=== PATIENT | female | born 1985 | race Caucasian/White ===

== ENCOUNTER 2017-08-08 08:29 | Emergency (ER) | payer BC, OTHER ==
[2017-08-08 08:45] VITALS: BP 153/103
--- NOTE | 2017-08-08 10:03 | UC ---
Throat Pain/Nasal Duy HPI - History of Current Complaint Chief Complaint: UCGeneralIllness Stated Complaint: SORE THROAT Time Seen by Provider: 08/08/17 08:48 Hx Last Menstrual Period: IUD Pain Intensity: 7 - Allergies/Home Medications Allergies/Adverse Reactions: Allergies Allergy/AdvReac Type Severity Reaction Status Date / Time No Known Allergies Allergy Verified 08/08/17 08:38 Home Medications: Home Medications [id number] Es (Nf) [Excedrin Extra Strength 250-250-65 mg (NF)] 3 tab PO ONCE PRN 08/08/17 [History Confirmed 08/08/17] Calcium Carbonate CHEW TAB* [Tums*] 1 tab PO Q6HR PRN 08/08/17 [History Confirmed 08/08/17] Ibuprofen TAB* [Advil TAB*] 800 mg PO Q8HR PRN 08/08/17 [History Confirmed 08/08] Levonorgestrel (Iud) [Kyleena IUD] 1 applic IU ONCE 08/08/17 [History Confirmed 08/08/17] Omeprazole CAP* [Prilosec CAP* 20 MG] 1 tab PO DAILY PRN 08/08/17 [History Confirmed 08/08/17] Phenol 1.4% Maddock* [Chloroseptic Throat Maddock*] 1 spray TOPICAL Q8HR PRN [History Confirmed 08/08/17] PMH/Surg Hx/FS Hx/Imm Hx - Surgical History Surgical History: Yes Surgery Procedure, Year, and Place: [place] Teeth extraction - Social History Alcohol Use: Occasionally Substance Use Type: None Smoking Status (MU): Never Smoked Tobacco Physical Exam Vital Signs: Initial Vital Signs Temp 98.4 F 08/08/17 08:41 Pulse 102 08/08/17 08:41 Resp 18 08/08/17 08:41 BP 153/103 08/08/17 08:41 Pulse Ox 99 08/08/17 08:41 Discharge - Discharge Plan Referrals: No Primary Care Phys,NOPCP [Primary Care Provider] -
--- NOTE | 2017-08-08 10:21 | UC ---
Throat Pain/Nasal Duy HPI - HPI Summary HPI Summary: ONSET OF SORE THROAT, PAIN WITH SWALLOWING AND SWOLLEN TONSILS YESTERDAY. PATIENT RECENTLY FOUND OUT ABOUT HER SIGNIFICANT OTHER'S INFIDELITY AND SHE IS CONCERNED ABOUT STI. [facility] AND HAD NEGATIVE RAPID HIV. SHE DENIES ANY URI SYMPTOMS OR COUGH. - History of Current Complaint Chief Complaint: UCGeneralIllness Stated Complaint: SORE THROAT Time Seen by Provider: 08/08/17 08:48 Hx Obtained From: Patient Hx Last Menstrual Period: IUD Onset/Duration: Sudden Onset, Lasting Days - 1 DAY, Still Present Severity: Moderate Pain Intensity: 7 Pain Scale Used: 0-10 Numeric Cough: None Associated Signs & Symptoms: Negative: Fever - Allergies/Home Medications Allergies/Adverse Reactions: Allergies Allergy/AdvReac Type Severity Reaction Status Date / Time No Known Allergies Allergy Verified 08/08/17 08:38 Home Medications: Home Medications [id number] Es (Nf) [Excedrin Extra Strength 250-250-65 mg (NF)] 3 tab PO ONCE PRN 08/08/17 [History Confirmed 08/08/17] Calcium Carbonate CHEW TAB* [Tums*] 1 tab PO Q6HR PRN 08/08/17 [History Confirmed 08/08/17] Ibuprofen TAB* [Advil TAB*] 800 mg PO Q8HR PRN 08/08/17 [History Confirmed 08/08] Levonorgestrel (Iud) [Kyleena IUD] 1 applic IU ONCE 08/08/17 [History Confirmed 08/08/17] Omeprazole CAP* [Prilosec CAP* 20 MG] 1 tab PO DAILY PRN 08/08/17 [History Confirmed 08/08/17] Phenol 1.4% Kapaa* [Chloroseptic Throat Kapaa*] 1 spray TOPICAL Q8HR PRN [History Confirmed 08/08/17] PMH/Surg Hx/FS Hx/Imm Hx - Additional Past Medical History Additional PMH: PCOS - Surgical History Surgical History: Yes Surgery Procedure, Year, and Place: [place] Teeth extraction - Family History Known Family History: Positive: Hypertension - Social History Alcohol Use: Occasionally Substance Use Type: None Smoking Status (MU): Never Smoked Tobacco Review of Systems Constitutional: Negative ENT: Sore Throat Respiratory: Negative Cardiovascular: Negative Gastrointestinal: Negative All Other Systems Reviewed And Are Negative: Yes Physical Exam Triage Information Reviewed: Yes Appearance: Well-Appearing, No Pain Distress, Well-Nourished Vital Signs: Initial Vital Signs Temp 98.4 F 08/08/17 08:41 Pulse 102 08/08/17 08:41 Resp 18 08/08/17 08:41 BP 153/103 08/08/17 08:41 Pulse Ox 99 08/08/17 08:41 Vital Signs Reviewed: Yes Eyes: Positive: Conjunctiva Inflamed ENT: Positive: Hearing grossly normal, Pharyngeal erythema, TMs normal, Tonsillar swelling, Tonsillar exudate, Muffled voice. Negative: Trismus, Hoarse voice Neck: Positive: Supple, Tenderness @ - MILD SPFL CERVICAL LAD, Enlarged Nodes @ - MILD SPFL CERVICAL LAD Respiratory Exam: Normal Cardiovascular: Positive: Tachycardia Abdomen Description: Positive: Soft Musculoskeletal: Positive: No Edema Neurological: Positive: Alert Psychological: Positive: Age Appropriate Behavior Skin: Negative: rashes Diagnostics - Laboratory Diagnostic Studies Completed/Ordered: STREP NEG Throat Pain/Nasal Course/Dx - Course Course Of Treatment: STREP NEG. PT CONCERNED ABOUT STI IN THROAT GIVEN PARTNERS RECENT INFIDELITY. [facility]. WILL CHECK SYPHILIS TODAY AND SWAB THROAT FOR GC/CHLAMYDIA. PT DECLINES EMPIRIC TREATMENT FOR GC/CHLAMYDIA. WILL GIVE MAGIC MOUTHWASH AND PREDNISNE TO HELP WITH PAIN AND BASED ON PRESENTATION WILL TX WITH AMOX. - Differential Dx/Diagnosis Provider Diagnoses: 1. TONSILLITIS. 2. HIGH RISK SEXUAL EXPOSURE Discharge - Sign-Out/Discharge Documenting (check all that apply): Discharge/Admit/Transfer - Discharge Plan Condition: Stable Disposition: HOME Prescriptions: Amoxicillin PO (*) [Amoxicillin 500 MG CAP*] 500 mg PO BID #20 cap Magic Mouth Was-MARLENE/MAAL/LIDO* 5 - 10 ml SWISH SWAL QID PRN #150 ml PRN Reason: Sore Throat predniSONE TAB* [Deltasone TAB*] 40 mg PO DAILY #10 tab Patient Education Materials: Tonsillitis (ED) Referrals: No Primary Care Phys,NOPCP [Primary Care Provider] - Additional Instructions: Strep test negative. Have sent swab of your throat for gonorrhea and chlamydia. Blood drawn for syphilis today. We'll treat with antibiotics given the appearance of your tonsils. Follow-up with a PCP if you're not improving as expected CALL THE NUMBER BELOW FOR ASSISTANCE IN ESTABLISHING WITH A PCP An additional resource available to assist in finding the appropriate physician for your health care needs is the [facility] ([facility]). You may contact them by calling [phone]. - Billing Disposition and Condition Condition: STABLE Disposition: HOME
== END 2017-08-08 10:27 | disposition home or self-care (01) ==
LOC: UCEAST 08:29
DX: J03.90 Acute tonsillitis, unspecified (principal); Z72.51 High risk heterosexual behavior
CPT/HCPCS: 36415; 86592; 87491; 87591; 87651; 99212; G0463

== ENCOUNTER 2018-01-27 12:18 | Emergency (ER) | payer BC ==
[2018-01-27 12:30] VITALS: BP 141/89
--- NOTE | 2018-01-27 13:15 | UC ---
Complaint Female HPI - HPI Summary HPI Summary: pt c/o sudden onset of urinary frequency, urgency and dysuria X 2-3 days. Pt also reports that she has a new sexual partner. Pt denies any vaginal discharge , pelvic pain or discomfort or irregular vaginal/uterine bleeding. - History Of Current Complaint Chief Complaint: UCGU Stated Complaint: URINARY ISSUE Time Seen by Provider: 01/27/18 13:00 Hx Obtained From: Patient Hx Last Menstrual Period: IUD in place ?: No Onset/Duration: Sudden Onset, Lasting Days, Still Present Timing: Constant Severity Initially: Mild Severity Currently: Mild Pain Intensity: 2 Character: Dull, Burning Aggravating Factor(s): Urination Alleviating Factor(s): Nothing Associated Signs And Symptoms: Positive: Negative - Risk Factors Ectopic Risk Factor: Negative Ovarian Torsion Risk Factor: Reproductive Age - Allergies/Home Medications Allergies/Adverse Reactions: Allergies Allergy/AdvReac Type Severity Reaction Status Date / Time No Known Allergies Allergy Verified 01/27/18 12:30 PMH/Surg Hx/FS Hx/Imm Hx Previously Healthy: Yes - Surgical History Surgical History: Yes Surgery Procedure, Year, and Place: [place] Teeth extraction - Family History Known Family History: Positive: Hypertension - Social History Occupation: Employed Full-time Lives: With Family Alcohol Use: Occasionally Substance Use Type: None Smoking Status (MU): Never Smoked Tobacco Have You Smoked in the Last Year: No Review of Systems Constitutional: Negative Skin: Negative Eyes: Negative ENT: Negative Respiratory: Negative Cardiovascular: Negative Gastrointestinal: Negative Genitourinary: Dysuria, Frequency, Urgency Motor: Negative Neurovascular: Negative Musculoskeletal: Negative Neurological: Negative Psychological: Negative Is Patient Immunocompromised?: No All Other Systems Reviewed And Are Negative: Yes Physical Exam Triage Information Reviewed: Yes Appearance: Well-Appearing Vital Signs: Initial Vital Signs Temp 98.6 F 01/27/18 12:25 Pulse 68 01/27/18 12:25 Resp 18 01/27/18 12:25 BP 141/89 01/27/18 12:25 Pulse Ox 99 01/27/18 12:25 Vital Signs Reviewed: Yes Eye Exam: Normal ENT Exam: Normal Dental Exam: Normal Neck exam: Normal Respiratory Exam: Normal Cardiovascular Exam: Normal Abdominal Exam: Normal Abdomen Description: Positive: Nontender Musculoskeletal Exam: Normal Neurological Exam: Normal Psychological Exam: Normal Skin Exam: Normal Complaint Female Dx - Differential Dx/Diagnosis Differential Diagnosis/HQI/PQRI: Sexually Transmitted Disease, Urinary Tract Infection Provider Diagnoses: dysuria Discharge - Sign-Out/Discharge Documenting (check all that apply): Patient Departure All imaging exams completed and their final reports reviewed: No Studies - Discharge Plan Condition: Stable Disposition: HOME Patient Education Materials: Dysuria (ED) Referrals: [facility] [Outside] - If Needed No Primary Care Phys,NOPCP [Primary Care Provider] - - Billing Disposition and Condition Condition: STABLE Disposition: Home
--- NOTE | 2018-01-29 09:23 | UC ---
- Progress Note Progress Note: Vaginal culture from January 27, 2018 comes back with positive for Gardnerella. Patient is not on any medications at this time. Nursing to contact patient I have sent a prescription for metronidazole by mouth. Discharge - Sign-Out/Discharge Documenting (check all that apply): Patient Departure All imaging exams completed and their final reports reviewed: No Studies - Discharge Plan Condition: Stable Disposition: HOME Prescriptions: metroNIDAZOLE [Flagyl 500 MG TAB] 500 mg PO BID #14 tab Patient Education Materials: Dysuria (ED) Referrals: [facility] [Outside] - If Needed No Primary Care Phys,NOPCP [Primary Care Provider] - - Billing Disposition and Condition Condition: STABLE Disposition: Home
--- NOTE | 2018-01-31 15:41 | UC ---
- Progress Note Progress Note: Urine with Urealyticum. General these bacteria are sensitive to doxycycline Rx sent for doxy 100mg BID for 7 days Discharge - Sign-Out/Discharge Documenting (check all that apply): Post-Discharge Follow Up All imaging exams completed and their final reports reviewed: No Studies - Discharge Plan Condition: Stable Disposition: HOME Prescriptions: DOXYcycline CAP(*) [DOXYcycline 100MG CAP(*)] 100 mg PO BID #14 cap metroNIDAZOLE [Flagyl 500 MG TAB] 500 mg PO BID #14 tab Patient Education Materials: Dysuria (ED) Referrals: [facility] [Outside] - If Needed No Primary Care Phys,NOPCP [Primary Care Provider] - - Billing Disposition and Condition Condition: STABLE Disposition: Home
== END 2018-01-27 13:21 | disposition home or self-care (01) ==
LOC: UCEAST 12:18
DX: R30.0 Dysuria (principal)
CPT/HCPCS: 81003; 87480; 87491; 87510; 87591; 87660; 87798; 99211; G0463

== ENCOUNTER 2018-05-11 18:19 | Emergency (ER) | payer BC ==
[2018-05-11 18:42] VITALS: BP 164/99
--- NOTE | 2018-05-11 19:58 | UC ---
Respiratory Complaint HPI - HPI Summary HPI Summary: 2 WEEKS OF COUGH, CONGESTION, SORE THROAT AND EAR PAIN. PATIENT REPORTS THAT OVERALL HER SYMPTOMS ARE ACTUALLY IMPROVING BUT HER COUGH IS PERSISTENT AND SHE HAS A HOARSE VOICE. TAKING [id number] ROBITUSSIN WHICH IS ALLOWING HER TO SLEEP THROUGH THE NIGHT. - History of Current Complaint Chief Complaint: UCRespiratory Stated Complaint: COUGH Time Seen by Provider: 05/11/18 19:39 Hx Obtained From: Patient Hx Last Menstrual Period: IUD one year ago Onset/Duration: Gradual Onset, Lasting Weeks, Still Present Timing: Constant Severity Initially: Moderate Severity Currently: Moderate Pain Intensity: 5 Pain Scale Used: 0-10 Numeric Character: Cough: Productive Aggravating Factors: Nothing Associated Signs And Symptoms: Positive: URI, Nasal Congestion, Hoarseness. Negative: Dyspnea, Fever, Wheezing - Allergies/Home Medications Allergies/Adverse Reactions: Allergies Allergy/AdvReac Type Severity Reaction Status Date / Time No Known Allergies Allergy Verified 05/11/18 18:42 PMH/Surg Hx/FS Hx/Imm Hx - Additional Past Medical History Additional PMH: PCOS Cardiovascular History: Hypertension - Surgical History Surgical History: Yes Surgery Procedure, Year, and Place: [place] Teeth extraction - Family History Known Family History: Positive: Hypertension - Social History Alcohol Use: Occasionally Substance Use Type: None Smoking Status (MU): Never Smoked Tobacco Have You Smoked in the Last Year: No Review of Systems All Other Systems Reviewed And Are Negative: Yes Constitutional: Positive: Fatigue ENT: Positive: Sore Throat, Ear Ache, Nasal Discharge Respiratory: Positive: Cough Cardiovascular: Positive: Negative Gastrointestinal: Positive: Negative Physical Exam Triage Information Reviewed: Yes Appearance: Well-Appearing, No Pain Distress, Well-Nourished Vital Signs: Initial Vital Signs Temp 99.7 F 05/11/18 18:39 Pulse 90 05/11/18 18:39 Resp 18 05/11/18 18:39 BP 164/99 05/11/18 18:39 Pulse Ox 99 05/11/18 18:39 Vital Signs Reviewed: Yes Eyes: Positive: Conjunctiva Clear ENT: Positive: Hearing grossly normal, Pharyngeal erythema, TMs normal, Hoarse voice. Negative: Tonsillar swelling, Tonsillar exudate Neck: Positive: Supple, Nontender, No Lymphadenopathy Respiratory Exam: Normal Cardiovascular Exam: Normal Abdomen Description: Positive: Soft Musculoskeletal: Positive: No Edema Neurological: Positive: Alert Psychological: Positive: Age Appropriate Behavior Skin: Negative: Rashes UC Diagnostic Evaluation - Laboratory O2 Sat by Pulse Oximetry: 99 Respiratory Course/Dx - Course Course Of Treatment: DISCUSSED THE POSSIBILITY OF TREATMENT WITH ANTIBIOTICS BASED ON LENGTH OF TIME OF ILLNESS HOWEVER GIVEN THE PATIENT IS OVERALL IMPROVING WILL HOLD OFF ON THIS FOR NOW AND TREAT WITH ALBUTEROL INHALER AND PREDNISONE. PATIENT WILL CALL ME NEXT WEEK IF SHE IS NOT IMPROVING WITH THIS TREATMENT. ADVISED ALSO REST AND HYDRATE. IBUPROFEN IF NEEDED. - Differential Dx/Diagnosis Provider Diagnosis: Acute bronchitis, Laryngitis Discharge - Sign-Out/Discharge Documenting (check all that apply): Patient Departure All imaging exams completed and their final reports reviewed: No Studies - Discharge Plan Condition: Stable Disposition: HOME Prescriptions: Albuterol HFA INHALER* [Ventolin HFA Inhaler*] 2 puff INH Q4H PRN #1 mdi PRN Reason: Shortness Of Breath predniSONE TAB* [Deltasone 20 MG TAB*] 40 mg PO DAILY #10 tab Patient Education Materials: Laryngitis (ED), Acute Bronchitis (ED) Referrals: No Primary Care Phys,NOPCP [Primary Care Provider] - Additional Instructions: YOUR SYMPTOMS ARE LIKELY VIRALLY MEDIATED AND SHOULD RESOLVE ON THEIR OWN WITH TIME. NO INDICATION FOR ANTIBIOTICS AT PRESENT. REST, HYDRATE, OTC MEDS NEEDED. WILL TREAT WITH PREDNISONE AND ALBUTEROL TO HELP WITH AIRWAY INFLAMMATION. SEEK FOLLOW-UP IF YOU ARE NOT IMPROVING OVER THE NEXT 1-2 WEEKS. YOU MAY CALL ME HERE NEXT WEEK IF YOU ARE NOT IMPROVING WITH THE ABOVE TREATMENT. I AM HERE MONDAY 7AM - 2:30PM, MONDAY FROM 2:30PM -10PM AND MONDAY FROM 7AM - 2:30PM. CALL THE NUMBER BELOW FOR ASSISTANCE IN ESTABLISHING WITH A PCP An additional resource available to assist in finding the appropriate physician for your health care needs is the [facility] ([facility]). You may contact them by calling [phone]. - Billing Disposition and Condition Condition: STABLE Disposition: Home
== END 2018-05-11 20:12 | disposition home or self-care (01) ==
LOC: UCEAST 18:19
DX: J20.9 Acute bronchitis, unspecified (principal); J04.0 Acute laryngitis; J02.9 Acute pharyngitis, unspecified; R09.81 Nasal congestion; I10 Essential (primary) hypertension; H92.09 Otalgia, unspecified ear
CPT/HCPCS: 99212; G0463

== ENCOUNTER 2019-05-12 13:39 | Emergency (ER) | payer BC ==
--- OUTSIDE RECORDS SUMMARY | 2019-05-12 13:45 | XMS REPORT | Continuity of Care Document ---
:1985 External Reference #:[id number] Author Name Edwige Watkins MD (transmitted by agent of provider Emery Hancock) Address [address] [place] [address] Care Team Providers Name Role Phone Heebr Alicea D.0. - Obstetrics & Care Team Information Phlebotomy Services Representative [phone] Gynecology Patient's Choice Care Team Information Phlebotomy Services Representative Unavailable Problems Description No Information Available Social History Type Date Description Comments Sex Unknown ETOH Use Denies alcohol use Tobacco Use Start: Unknown Patient has never smoked Smoking Status Reviewed: 05/02/19 Patient has never smoked Exercise Type/Frequency Does not exercise Allergies, Adverse Reactions, Alerts Description No Known Drug Allergies Medications Active Medications SIG Qnty Indications Ordering Provider Date Spironolactone 1 by mouth Unknown 100mg Tablets every day Mirena (52 MG) Unknown 20mcg/24HR IUD Immunizations Description No Information Available Vital Signs Date Vital Result Comment 05/02/2019 2:42pm Height 66 inches 5'6" Weight 275.00 lb Heart Rate 78 /min BP Systolic Sitting 124 mmHg BP Diastolic Sitting 82 mmHg Respiratory Rate 16 /min Body Temperature 98.8 F BMI (Body Mass Index) 44.4 kg/m2 Results Description No Information Available Procedures Description No Information Available Medical Devices Description No Information Available Encounters Description No Information Available Assessments Description No Information Available Plan of Treatment Future Appointment(s):10/31/2019 1:00 pm - Edwige Watkins MD at [facility] Functional Status Description No Information Available Mental Status Description No Information Available Referrals Description No Information Available
--- OUTSIDE RECORDS SUMMARY | 2019-05-12 13:45 | XMS REPORT | Continuity of Care Document ---
:1985 External Reference #:[id number] Author Name Heber Alicea JR, DO (transmitted by agent of provider Inessa Pope ) Address [address], [place] [address] Problems Description No Information Available Social History Type Date Description Comments Sex Unknown Cigarette Use Does Not Smoke Cigarettes ETOH Use Occasionally consumes alcohol Recreational Drug Use Denies Drug Use Tobacco Use Start: Unknown Patient has never smoked Smoking Status Reviewed: 04/24/19 Patient has never smoked Exercise Type/Frequency Exercises regularly Walking regularly Seat Belt/Car Seat Always uses seat belt Allergies, Adverse Reactions, Alerts Description No Known Drug Allergies Medications Active Medications SIG Qnty Indications Ordering Provider Date Kyleena Unknown Immunizations Description No Information Available Vital Signs Date Vital Result Comment 04/24/2019 9:33am BP Systolic 128 mmHg BP Diastolic 88 mmHg Height 65.75 inches 5'5.75" Weight 315.00 lb BMI (Body Mass Index) 51.2 kg/m2 Last Menstrual Period [id number] 0 Parity 0 04/21/2017 8:15am BP Systolic 128 mmHg BP Diastolic 90 mmHg Height 65.75 inches 5'5.75" Weight 297.00 lb BMI (Body Mass Index) 48.3 kg/m2 Last Menstrual Period [id number] 0 Parity 0 Results Description No Information Available Procedures Description No Information Available Medical Devices Description No Information Available Encounters Description No Information Available Assessments Description No Information Available Plan of Treatment 04/21/2017 - Jenn Donahue M.D.[id number] Encounter for routine checking of intrauterine contraceptive deviceComments:Please check for IUD strings after menses or if you experience any unusual pressure/vaginal symptoms. I recommend an evaluation in the office as soon as possible if you can not feel the strings. Please do a home test if you think you may be or are experiencing irregular vaginal bleeding, if a test was positive you would need immediate evaluation (office or Emergency Room if the office is closed). Kyleena due to be removed in 5 yearsIf no concerns, plan Annual Food Or Baggage Handling [place] exam one year Functional Status Description No Information Available Mental Status Description No Information Available Referrals Description No Information Available
--- NOTE | 2019-05-12 14:34 | UC ---
Throat Pain/Nasal Duy HPI - HPI Summary HPI Summary: 33 yo female presents with URI symptoms. She tells me that for the last 2 weeks she has had waxing and waning sinus congestion and dry cough. She has been taking OTC sudafed and afrin with little relief. This morning she noticed a small blister on her upper lip and is concerned this is herpes. She denies fever , chills, SOB, chest pain, abdominal pain, n/v. - History of Current Complaint Chief Complaint: UCGeneralIllness Stated Complaint: SINUS CONGESTION, AND COLD SORE Time Seen by Provider: 05/12/19 14:34 Hx Last Menstrual Period: no period Onset/Duration: Gradual Onset Severity: Mild Pain Intensity: 2 Pain Scale Used: 0-10 Numeric - Allergies/Home Medications Allergies/Adverse Reactions: Allergies Allergy/AdvReac Type Severity Reaction Status Date / Time No Known Allergies Allergy Verified 05/12/19 14:05 Home Medications: Home Medications Oxymetazoline 0.05% NASAL SPR* [Afrin 0.05% NASAL SPRAY*] 1 spray NASAL Q12H [History Confirmed 05/12/19] Pseudoephedrine HCL ER TAB* [Sudafed 12 Hour*] 120 mg PO BID 05/12/19 [History Confirmed 05/12/19] Spironolactone TAB* [Aldactone TAB*] 100 mg PO DAILY 05/12/19 [History Confirmed 05/12/19] PMH/Surg Hx/FS Hx/Imm Hx - Additional Past Medical History Additional PMH: PCOS - Surgical History Surgical History: Yes Surgery Procedure, Year, and Place: [place] Teeth extraction - Family History Known Family History: Positive: Hypertension - Social History Lives: With Family Alcohol Use: Occasionally Substance Use Type: None Smoking Status (MU): Never Smoked Tobacco Have You Smoked in the Last Year: No Review of Systems All Other Systems Reviewed And Are Negative: No Constitutional: Positive: Negative Skin: Positive: Other - blister lip Eyes: Positive: Negative ENT: Positive: Nasal Discharge, Sinus Congestion Respiratory: Positive: Cough Cardiovascular: Positive: Negative Gastrointestinal: Positive: Negative Neurological: Positive: Negative Psychological: Positive: Negative Physical Exam - Summary Physical Exam Summary: GENERAL: NAD. WDWN. No pain distress. SKIN: UPPER LIP: 5mm oval shaped skin-colored blister without erythema, drainage , or ulceration. No rashes, sores, lesions, or open wounds. HEENT: Head: AT/NC Eyes: EOM intact. Conjunctiva clear without inflammation or discharge. Ears: Hearing grossly normal. TMs intact, no bulging, erythema, or edema. Nose: Nasal mucosa pink and moist. NTTP maxillary and frontal sinus. Throat: Posterior oropharynx without exudates, erythema, or tonsillar enlargement. Uvula midline. NECK: Supple. Nontender. No lymphadenopathy. CHEST: CTAB. No r/r/w. No accessory muscle use. Breathing comfortably and in no distress. CV: RRR. Pulses intact. Cap refill <2seconds NEURO: Alert. PSYCH: Age appropriate behavior. Triage Information Reviewed: Yes Vital Signs: Initial Vital Signs Temp 98.6 F 05/12/19 14:07 Pulse 97 05/12/19 14:07 Resp 18 05/12/19 14:07 BP 0/0 05/12/19 14:07 Pulse Ox 97 05/12/19 14:07 Vital Signs Reviewed: Yes Throat Pain/Nasal Course/Dx - Course Course Of Treatment: Suspect viral illness. Advised supportive care and will rx for prednisone as pt states this has helped her cough in the past with similar illness. - Differential Dx/Diagnosis Provider Diagnosis: Viral syndrome Discharge ED - Sign-Out/Discharge Documenting (check all that apply): Patient Departure All imaging exams completed and their final reports reviewed: No Studies - Discharge Plan Condition: Stable Disposition: HOME Prescriptions: Albuterol HFA INHALER* [Ventolin HFA Inhaler*] 1 puff INH Q6H PRN #1 mdi PRN Reason: Cough Benzonatate CAP* [Tessalon 100 MG CAP*] 100 mg PO TID PRN #21 cap PRN Reason: Cough guaiFENesin ER TAB [Mucinex*] 600 mg PO BID #20 tab.er predniSONE 20 mg TAB [Deltasone 20 MG TAB*] 40 mg PO DAILY #10 tab Patient Education Materials: Upper Respiratory Infection (ED) Referrals: No Primary Care Phys,NOPCP [Primary Care Provider] - Additional Instructions: If you develop a fever, shortness of breath, chest pain, new or worsening symptoms - please call your PCP or go to the ED immediately. - Billing Disposition and Condition Condition: STABLE Disposition: Home
[2019-05-12 15:12] VITALS: BP 136/88
== END 2019-05-12 15:10 | disposition home or self-care (01) ==
LOC: UCEAST 13:39
DX: B34.9 Viral infection, unspecified (principal); R05 Cough; E28.2 Polycystic ovarian syndrome; J34.89 Other specified disorders of nose and nasal sinuses; S00.521A Blister (nonthermal) of lip, initial encounter
CPT/HCPCS: 99212; G0463